=== PATIENT | female | born 1960 | race Two or more races ===

== ENCOUNTER 2022-07-07 10:12 | Inpatient (IN) | payer SELFPAY ==
[~2022-07-07] VITALS: Ht 175 cm; Wt 75.0 kg
[2022-07-07 10:28] LABS: INR 1.5 (0.9-1.15)
[2022-07-07 10:29] LABS: Potassium 3.5 mmol/L (3.5-5.1)
[2022-07-07] MEDS ORDERED: VANCOMYCIN 1GM/250ML 250 ML IV SCH (22:00)
[2022-07-08] MEDS ORDERED: ALLOPURINOL 300 MG TAB PO SCH (10:00)
== END 2022-07-07 12:50 | disposition home or self-care (01) | DRG 872 ==
LOC: DOU IN ADS 10:12
PROVIDERS: ADMIT Internal Medicine Geriatric Medicine; ATTEND Internal Medicine Geriatric Medicine
DX: A41.9 Sepsis, unspecified organism (principal)
CPT/HCPCS: 36415; 80178; 82565; 84132; 85049; 85610; G0378